=== PATIENT | male | born 1985 | race Two or more races ===

== ENCOUNTER 2025-04-04 10:53 | Outpatient (RCR) | payer MEDICAID, SELFPAY | END 2025-04-06 23:59 | disposition home or self-care (01) | LOC: SCTC 10:53 | PROVIDERS: PCP Nurse Practitioner Family; Referring Provider Nurse Practitioner Family; Visit Provider Nurse Practitioner Family | DX: K76.0 Fatty (change of) liver, not elsewhere classified (principal) | CPT/HCPCS: 99203; 99212; G0463 ==

== ENCOUNTER 2025-05-09 15:32 | Outpatient (RCR) | payer MEDICAID, SELFPAY | END 2025-06-06 23:59 | disposition home or self-care (01) | LOC: SCTC 15:32 | PROVIDERS: PCP Nurse Practitioner Family; Referring Provider Nurse Practitioner Family; Visit Provider Nurse Practitioner Family | DX: Z09 Encounter for follow-up examination after completed treatment for conditions other than malignant neoplasm (principal); Z86.2 Personal history of diseases of the blood and blood-forming organs and certain disorders involving the immune mechanism | CPT/HCPCS: 99212; G0463 ==